=== PATIENT | female | born 1985 | race African-American/Black ===

== ENCOUNTER → 2017-06-22 | Outpatient (CLI) | payer BC ==
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
== END | disposition home or self-care (01) ==
LOC: C.CTS 14:57
PROVIDERS: ATTEND Nurse Practitioner
DX: G44.309 Post-traumatic headache, unspecified, not intractable (principal)